=== PATIENT | female | born 1985 ===

== ENCOUNTER 2025-03-05 06:43 | Day surgery (SDC) | payer OTHER, SELFPAY ==
[2025-03-05] VITALS (8 sets, daily range): BP systolic 112–151; BP diastolic 66–87
[2025-03-05] MEDS: NORMOSOL-R/PLASMALYTE-A 1000 IV (13:35)
== END 2025-03-05 16:21 | disposition home or self-care (01) ==
LOC: SDS 06:43
PROVIDERS: ATTENDING PHYSICIAN Surgery
DX: K60.2 Anal fissure, unspecified (principal)
CPT/HCPCS: 46505; J0585